=== PATIENT | female | born 1975 | race Hispanic/Latino ===

== ENCOUNTER → 2020-09-06 | Day surgery (SDC) | payer BC ==
[~2020-09-06] MED LIST: FENTANYL CITRATE/PF 100MCG/2 ML INJ ONE; LEXAPRO10 MG PO; MIDAZOLAM HCL 2 MG/2 ML VIAL ONE; PROPOFOL IV EMULSION 10 MG/ML 20 ML VIAL ONE
[2020-09-06 11:15] VITALS: BP 133/95
== END | disposition home or self-care (01) ==
LOC: OR 08:57
PROVIDERS: ATTEND Internal Medicine Gastroenterology
DX: K29.50 Unspecified chronic gastritis without bleeding (principal); K29.80 Duodenitis without bleeding; K26.9 Duodenal ulcer, unspecified as acute or chronic, without hemorrhage or perforation; K21.00 Gastro-esophageal reflux disease with esophagitis, without bleeding; K44.9 Diaphragmatic hernia without obstruction or gangrene; K58.9 Irritable bowel syndrome, unspecified; K76.0 Fatty (change of) liver, not elsewhere classified; E28.2 Polycystic ovarian syndrome; F41.9 Anxiety disorder, unspecified; F32.9 Major depressive disorder, single episode, unspecified; Z01.812 Encounter for preprocedural laboratory examination; Z20.828 Contact with and (suspected) exposure to other viral communicable diseases; Z68.42 Body mass index [BMI] 45.0-49.9, adult
CPT/HCPCS: 36415; 43239; 82941; 84702; J2250; J2704; J3010; U0002; 43235